=== PATIENT | male | born 1985 | race Caucasian/White ===

== ENCOUNTER 2023-10-01 17:00 | Emergency (ER) | payer SELFPAY ==
[~2023-10-01] VITALS: Ht 177.8 cm; Wt 93.7 kg
[2023-10-01] MEDS ORDERED: BUPROPION HCL100 MG PO (17:15)
[2023-10-01] MEDS ORDERED: LEXAPRO5 MG PO (17:15)
[2023-10-01 18:52] VITALS: BP 124/69
== END 2023-10-01 18:54 | disposition home or self-care (01) ==
LOC: ED 17:00
DX: S61.411A Laceration without foreign body of right hand, initial encounter (principal); W26.8XXA Contact with other sharp object(s), not elsewhere classified, initial encounter; Z79.899 Other long term (current) drug therapy
CPT/HCPCS: 12001; 99283-25